=== PATIENT | female | born 1985 | race Caucasian/White ===

== ENCOUNTER 2025-01-09 20:11 | Emergency (ER) | payer OTHER, SELFPAY ==
--- OUTSIDE RECORDS SUMMARY | 2024-12-21 09:00 | XMS_ITS | Encounter Summary ---
Author Organization [facility] Address [address] [place] [address] Care Team Providers Care Fire Apparatus Engineer Name Role Phone Verna Neves MD Primary Care Provider [phone] Reason for Referral * Consult/Transfer Care (Routine) - New Request Specialty Diagnoses / Procedures Referred By Contac t Referred To Contact Diagnoses Depression with anxiety (HR[place]) [place] [address] [place] [address] Phone: tel: fax: Referral ID Status Reason Start Date Expiration Date V isits Requested Visits Authorized [id number] New Request 12/21/2024 03/22/2026 1 1 Scheduling Instructions Your clinician has recommended an appointment with Behavioral Health. You may call [phone] to schedule your appointment. This recommended service/s may not be covered by your health plan (health insurance). To find out your specific benefit coverage, please call the number on your insurance card. Please note that in order to maintain access for all patients, Behavioral Health does have a late cancellation policy. In order to avoid being restricted from scheduling future appointments in Behavioral Health you will need to cancel at least 48 hours in advance. We request you that you arrive 30 minutes before your first appointment to complete paperwork. Question Answer Appointment Urgency? Non-Urgent Reason for request? anxiety and depression Requested Services? Therapy/Counseling Pt aware and agrees to this order: Confirmed with patient Reason for Visit * Reason Comments DEPRESSION ANXIETY HEADACHE,MIGRAINE Encounter Details Date Type Department Care Team (Late st Contact Info) Description 12/21/2024 9:00 AM CDT Office Visit [facility] [address] [place] [address] [place] [address] [place] [address] Depression with anxiety (HRC) (Primary Dx); Chronic migraine with aura without status migrainosus, not intractable Social History Tobacco Use Types Packs/Day Years Used Date Smoking Tobacco: Never Passive Smoke Exposure: Never Smokeless Tobacco: Never Alcohol Use Standard Drinks/Week Comments Not Currently 0 (1 standard drink = 0.6 oz pur e alcohol) Rare AUDIT-C Answer Date Recorded Q1: How often do you have a drink containing alc ohol? Monthly or less 12/31/2019 Q2: How many drinks containi ng alcohol do you have on a typical day when you are drinking? 1 or 2 12/31/2019 Q3: How often do you have si x or more drinks on one occasion? 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 Not on file documented as of this encounter Last Filed Vital Signs Vital Sign Reading Time Taken Comments Blood Pressure 130/86 12/21/2024 8:51 AM CDT Pulse 84 12/21/2024 8:51 AM CDT Temperature - - Respiratory Rate - - Oxygen Saturation - - Inhaled Oxygen Concentration - - Weight 114.8 kg (253 lb) 12/21/2024 8:51 AM CDT Height - - Body Mass Index 42.1 07/19/2024 11:58 AM BILLET RECORDER documented in this encounter Patient Instructions * Patient Instructions* Kale Purvis MD - 12/21/2024 9:00 AM CDT 24 Hour [facility] Line: [phone] [employer] - resource for finding a therapist [facility] ([facility]): [phone] [facility]ul[facility] Norman ([place]): [phone] 1) [facility] [place]: [phone] 2) [facility] [place]: [phone] [place]: [phone] 3) [facility] [place]: [phone] 4) [facility]: [phone] 5) [facility]: [phone] 6)[facility] [place]: [phone] (also [facility]) 7) [facility]: [phone] 8) [facility] (counseling only) [place]: [phone] 9) [facility] [place]: [phone] 10) [facility] [place]: [phone] (counseling only) 11) [facility] [place]: [phone] 12) [facility] [place]: [phone] 13) [facility] [place]: [phone] 14) [facility] [place]: [phone] 15) [facility].: [phone] documented in this encounter Progress Notes * Kale Purvis MD - 12/21/2024 9:00 AM CDT Historical: Chief Complaint Patient presents with DEPRESSION ANXIETY HEADACHE,MIGRAINE Anxiety Follow-Up Do you take any prescription medication for this condition? YES How many doses of medication have you missed in the past week? 0 Do you have medication side effect concerns? No Are you seeing a counselor or therapist? No- referral pended How many times a week are you exercising regularly? infrequent exercise 12/21/2024 9:00 AM 02/04/2024 4:00 PM 07/04/2023 3:10 PM 11/12/2022 2:55 PM 10/09/2022 1:55 PM 08/06/2022 2:05 PM 10/08/2021 7:25 AM ROBERT-7 Feeling nervous 2 - More than half the days 0 - Not at all 3 - Nearly every day 1 - Several days 2 - More than half the days 1 - Several days 3 - Nearly every day Can't stop worrying 2 - More than half the days 0 - Not at all 2 - More than half the days 0 - Not at all 1 - Several days 2 - More than half the days 3 - Nearly every day Worrying too much 3 - Nearly every day 0 - Not at all 1 - Several days 1 - Several days 1 - Severaldays 2 - More than half the days 3 - Nearly every day Trouble relaxing 2 - More than half the days 0 - Not at all 2 - More than half the days 1 - Severaldays 1 - Several days 3 - Nearly every day 3 - Nearly every day Restlessness 0 - Not at all 0 - Not at all 1 - Several days 0 - Not at all 1 - Several days 0 - Notat all 2 - More than half the days Easily annoyed 3 - Nearly every day 1 - Several days 3 - Nearly every day 0 - Not at all 3 - Nearlyevery day 3 - Nearly every day 3 - Nearly every day Feeling afraid 3 - Nearly every day 0 - Not at all 1 - Several days 0 - Not at all 1 - Several days1 - Several days 3 - Nearly every day How difficult? Extremely difficult Not difficult Very difficult Somewhat difficult Very difficult Very difficult Extremely difficult Total score 15 1 13 3 10 12 20 Date Performed 12/21/2024 Time Performed 8:50 AM Depression Follow-Up 12/21/2024 9:00 AM 07/19/2024 12:20 PM 02/04/2024 4:00 PM 07/04/2023 3:10 PM 11/27/2022 1:00 PM 11/12/2022 2:55 PM 10/09/2022 1:55 PM PHQ-9 PHQ-9 Score Total 13 3 5 10 2 3 6 Q1: Loss of Int/Pleas 3 1 1 3 1 1 1 Q2: Depressed mood 2 1 1 1 0 0 1 Q3: Sleep problems 0 0 1 1 0 0 1 Q4: Tired/Low Energy 2 0 1 2 0 1 2 Q5: Appetite change 2 0 0 0 0 0 0 Q6: Feelings of failure 2 1 1 1 0 0 0 Q7: Concentration Prob 2 0 0 1 1 1 1 Q8: Slow or Restless 0 0 0 1 0 0 0 Q9: Thought Self Harm 0 0 0 0 0 0 0 Date PHQ9 was completed 02/04/2024 11/27/2022 Worsening anxiety and depression. Feeling tired emotionally and physically. No SI. On fluoxetine 30mg, thinks she may benefit from increasing dose. Would also like to meet with therapist. Headache/Migraine Follow-Up How often do you have headaches? 3 days per week On a scale of 1 to 10, how severe is your headache pain at its worst? 6 Since you were last seen for this, have your headaches improved? Worsened- more frequently Have the headaches caused any interference with work or daily activities? YES On the onset of a headache do you take any medication? YES Ibuprofen, Tylenol/acetaminophen, and Imitrex. On average, how many days do you take OTC or prescription medication to ease your headaches? 2-3 Do you take any daily medication to prevent headaches? No Do you have medication side effect concerns? No Diagnosed with migraines at age 15. Reports they have become more frequent the last 6 months. Developed aura with dark spots peripherally in vision at beginning of migraines about 4 months ago. Increase in stress, moved in with partner who has kids and started working for [email or web address]. Uses tylenol and ibuprofen. Having migraines 3 days/week now. Uses about 9 pills per month of sumatriptan. She takes sumatriptan 25 mg and usually has to take two. No associated numbness, tingling or speech difficulties. No new medications prior to increase in headaches. I have personally reviewed the patient's allergies, medications, and past medical history in detailand updated the patient record as necessary. Observed: BP 130/86 (BP Location: Left Arm, BP Cuff Size: Large) Pulse 84 Wt 253 lb (114.8 kg) BMI 42.10 kg/m?? Physical Exam: General Appearance: alert, well appearing, and in no apparent distress HEENT: lids normal, sclera clear, conjunctiva normal, EOMs intact, pupils equal round and reactive to light, and no nystagmus and oropharynx clear Neck: supple Heart: regular rate and rhythm and no murmurs, gallops or rubs Lungs: clear to auscultation and no wheezes, rales or rhonchi Neurologic: normal speech, no facial droop, alert and oriented x 3, and cranial nerves 2 -12 intact Psychiatric: affect/mood normal, cooperative, normal judgement/insight, and memory intact Assessment/Plan: Depression with anxiety (HRC) (primary encounter diagnosis) Comment: GAD7 15 and PHQ9 score of 13. Increase in stress, moved in with partner who has kids and started working for [email or web address]. Check TSH. On fluoxetine 30 mg, thinks she may benefit from increasing dose.No significant side effects. Would also like to meet with therapist. Referral ordered and provided other options in AVS Plan: Behavioral Health - Adult/Peds, TSH with reflex to fT4 (not for treatment monitoring), FLUoxetine (PROZAC) 40 MG capsule Chronic migraine with aura without status migrainosus, not intractable Comment: Will check routine labs to assess for possible etiologies. Most likely increasing in frequency is secondary to increased stress and patient agrees. Will hold off on brain imaging today due to identifiable reason for worsening migraines and patient in agreement. Neuro exam without concerning findings. No red flag symptoms. Increase sumatriptan to 50 mg and given frequency of migraines plan to start preventive medication. Discussed options with shared decision making. Trial propranolol due to anxiety. Start propranolol 20 mg twice daily. Pulse 84 today. Potential side effects reviewed.Follow up in 3 months to reassess or sooner if side effects. Plan: Complete Blood Count -W/Diff, Comprehensive Metabolic Panel, propranolol (INDERAL) 20 MG tablet, SUMAtriptan (IMITREX) 50 MG tablet With aura discussed risks of being on OCP with estrogen as this increases risk for VTE. Patient voiced understanding but prefers to stay on it for now. Takes for periods. She will consider Mirena IUDfor the future. Please see orders and patient instructions Kale Purvis MD documented in this encounter Plan of Treatment Scheduled Referrals Name Type Priority Associated Diagnoses Orde r Schedule Behavioral Health - Adult/Peds Referral Routine Depression with anxiety (HRC) Ordered: 12/21/2024 documented as of this encounter Results * TSH with reflex to fT4 (not for treatment monitoring) (12/21/2024 9:35 AM CDT) TSH, Reflex 1.89 0.30 - 4.50 uIU/mL 12/21/2024 3:28 PM CDT [facility] Blood Venipuncture / Unknown 12/21/2024 9:35 AM CDT 12/21/2024 9:35 AM CDT us Kale Purvis MD LAB_1 Final Result [facility] [address] * Comprehensive Metabolic Panel (12/21/2024 9:35 AM CDT) Sodium 138 136 - 145 mmol/L 12/21/2024 3:12 PM CDT [facility] Potassium 4.3 3.5 - 5.1 mmol/L 12/21/2024 3:12 PM T [facility] Chloride 106 98 - 109 mmol/L 12/21/2024 3:12 PM T [facility] CO2 24 20 - 29 mmol/L 12/21/2024 3:12 PM T [facility] Anion Gap 8 6 - 16 mmol/L 12/21/2024 3:12 PM T [facility] Calcium 8.8 8.4 - 10.4 mg/dL 12/21/2024 3:12 PM T [facility] BUN 14 7 - 26 mg/dL 12/21/2024 3:12 PM T [facility] Creatinine 0.82 0.55 - 1.02 mg/dL 12/21/2024 3:12 PM [facility] Alkaline Phosphatase 95 40 - 150 U/L 12/21/2024 3:12 PM T [facility] AST (SGOT) 20 10 - 40 U/L 12/21/2024 3:12 PM CDT [facility] ALT (SGPT) 10 0 - 55 U/L 12/21/2024 3:12 PM T [facility] Bilirubin, Total 0.3 0.2 - 1.2 mg/dL 12/21/2024 3:12 PM T [facility] Protein, Total 6.9 6.4 - 8.3 g/dL 12/21/2024 3:12 PM T [facility] Albumin 3.7 3.5 - 5.0 g/dL 12/21/2024 3:12 PM T [facility] Glucose 70 70 - 100 mg/dL 12/21/2024 3:12 PM T [facility] Comment:The given reference range is for the fasting state. Non-fasting reference range for glucose is 70 - 180 mg/dL. GFR, Estimated >60 >60 mL/min/1. 73m2 12/21/2024 3:12 PM T [facility] Hours Fasting 0.1 8 - 12 Hours 12/21/2024 3:12 PM [facility] Blood Venipuncture / Unknown 12/21/2024 9:35 AM CDT 12/21/2024 9:35 AM CDT us Kale Purvis MD LAB_1 Final Result Performing Organization Address City/State/[facility] Co de Phone Number [facility] [address] documented in this encounter Visit Diagnoses Diagnosis Depression with anxiety (HRC)- Primary Dysthymic disorder Chronic migraine with aura without status migrainosus, not intractable documented in this encounter Care Teams Fire Apparatus Engineer Relationship Specialty Start Date End Date Verna Neves MD [address] [place] [address] PCP - General Family Practice 12/29/19 documented as of this encounter
--- OUTSIDE RECORDS SUMMARY | 2024-12-21 09:40 | XMS_ITS | Encounter Summary ---
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 Gender Identity Not on file Sexual Orientation Not on file 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 Not on file documented as of this encounter Plan of Treatment Not on file documented as of this encounter Procedures Procedure Name Priority Date/Time Associated Diagnosis Comments RBC AND PLATELET MORPHOLOGY Routine 12/21/2024 9:35 AM CDT Chronic migraine with aura without status migrainosus, not intractable CBC AND DIFFERENTIAL PANEL Routine 12/21/2024 9:35 AM CDT Chronic migraine with aura without status migrainosus, not intractable COMPLETE BLOOD COUNT-W/DIFF Routine 12/21/2024 9:35 AM CDT Chronic migraine with aura without status migrainosus, not intractable COMPREHENSIVE METABOLIC PANEL Routine 12/21/2024 9:35 AM CDT Chronic migraine with aura without status migrainosus, not intractable TSH, SENSITIVE (WITH REFLEX) Routine 12/21/2024 9:35 AM CDT Depression with anxiety (HRC) documented in this encounter Results * Morphology-RBC and Platelet (12/21/2024 9:35 AM CDT) RBC Morphology Reviewed 12/21/2024 11:16 AM CDT [facility] Platelet Estimate Adequate Adequate 12/21/2024 11:16 AM CDT [facility] Blood Venipuncture / Unknown 12/21/2024 9:35 AM CDT 12/21/2024 9:35 AM CDT us Kale Purvis MD LAB_1 Final Result [facility] [address] [place] [address], [facility] * Complete Blood Count-W/Diff (12/21/2024 9:35 AM CDT) WBC 7.1 3.5 - 10.5 x10(9)/L 12/21/2024 11:16 AM CDT [facility] RBC 4.59 3.90 - 5.03 x10(12)/L 12/21/2024 11:16 AM CDT [facility] Hemoglobin 13.6 12.0 - 15.5 g/dL 12/21/2024 11:16 AM CDT [facility] HCT 41.4 34.9 - 44.5 % 12/21/2024 11:16 AM CDT [facility] MCV 90.2 80.0 - 100.0 fL 12/21/2024 11:16 AM CDT [facility] MCH 29.6 27.6 - 33.3 pg 12/21/2024 11:16 AM CDT [facility] MCHC 32.9 31.5 - 35.2 g/dL 12/21/2024 11:16 AM CDT [facility] RDW 12.3 11.9 - 15.5 % 12/21/2024 11:16 AM CDT [facility] Platelets 254 150 - 450 x10(9)/L 12/21/2024 11:16 AM CDT [facility] Neutrophil Absolute 4.9 1.7 - 7.0 10(9)/L 12/21/2024 11:16 AM CDT [facility] Lymphocyte Absolute 1.7 1.0 - 4.8 10(9)/L 12/21/2024 11:16 AM CDT [facility] Monocyte Absolute 0.4 0.2 - 0.9 10(9)/L 12/21/2024 11:16 AM CDT [facility] Eosinophil Absolute 0.0 0.0 - 0.5 10(9)/L 12/21/2024 11:16 AM CDT [facility] Basophil Absolute 0.0 0.0 - 0.3 10(9)/L 12/21/2024 11:16 AM CDT [facility] Immature Granulocyte % 0.3 0.0 - 0.5 % 12/21/2024 11:16 AM [facility] Blood Venipuncture / Unknown 12/21/2024 9:35 AM CDT 12/21/2024 9:35 AM CDT us Kale Purvis MD LAB_1 Final Result [facility] [address] [place] [address], [facility] * TSH with reflex to fT4 (not for treatment monitoring) (12/21/2024 9:35 AM CDT) TSH, Reflex 1.89 0.30 - 4.50 uIU/mL 12/21/2024 3:28 PM T [facility] Blood Venipuncture / Unknown 12/21/2024 9:35 AM CDT 12/21/2024 9:35 AM CDT us Kale Purvis MD LAB_1 Final Result [facility] [address] * Comprehensive Metabolic Panel (12/21/2024 9:35 AM CDT) Sodium 138 136 - 145 mmol/L 12/21/2024 3:12 PM T [facility] Potassium 4.3 3.5 - 5.1 mmol/L 12/21/2024 3:12 PM [facility] Chloride 106 98 - 109 mmol/L 12/21/2024 3:12 PM T [facility] CO2 24 20 - 29 mmol/L 12/21/2024 3:12 PM T [facility] Anion Gap 8 6 - 16 mmol/L 12/21/2024 3:12 PM T [facility] Calcium 8.8 8.4 - 10.4 mg/dL 12/21/2024 3:12 PM T [facility] BUN 14 7 - 26 mg/dL 12/21/2024 3:12 PM T [facility] Creatinine 0.82 0.55 - 1.02 mg/dL 12/21/2024 3:12 PM [facility] Alkaline Phosphatase 95 40 - 150 U/L 12/21/2024 3:12 PM T [facility] AST (SGOT) 20 10 - 40 U/L 12/21/2024 3:12 PM T [facility] ALT (SGPT) 10 0 - 55 U/L 12/21/2024 3:12 PM [facility] Bilirubin, Total 0.3 0.2 - 1.2 mg/dL 12/21/2024 3:12 PM [facility] Protein, Total 6.9 6.4 - 8.3 g/dL 12/21/2024 3:12 PM CDT [facility] Albumin 3.7 3.5 - 5.0 g/dL 12/21/2024 3:12 PM CDT [facility] Glucose 70 70 - 100 mg/dL 12/21/2024 3:12 PM CDT [facility] Comment:The given reference range is for the fasting state. Non-fasting reference range for glucose is 70 - 180 mg/dL. GFR, Estimated >60 >60 mL/min/1. 73m2 12/21/2024 3:12 PM CDT [facility] Hours Fasting 0.1 8 - 12 Hours 12/21/2024 3:12 PM T [facility] Blood Venipuncture / Unknown 12/21/2024 9:35 AM CDT 12/21/2024 9:35 AM CDT us Kale Purvis MD LAB_1 Final Result Performing Organization Address City/State/[facility] Co de Phone Number [facility] [address] documented in this encounter Visit Diagnoses Diagnosis Chronic migraine with aura without status migrainosus, not intractable Depression with anxiety (HRC) Dysthymic disorder documented in this encounter Care Teams Lathe Tender Relationship Specialty Start Date End Date Verna Neves MD [address] [place] [address] PCP - General Family Practice 12/29/19 documented as of this encounter
--- OUTSIDE RECORDS SUMMARY | 2024-12-31 09:00 | XMS_ITS | Encounter Summary ---
[facility] Address [address], [place] [address] Care Team Providers Care Online Marketing Director Name Role Phone Verna Neves MD Primary Care Provider [phone] Reason for Visit * Reason Comments DIZZINESS Outside mowing lawn, came back in house and had some bug bites that were bleeding pt claims. 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 Not on file documented as of this encounter Last Filed Vital Signs Vital Sign Reading Time Taken Comments Blood Pressure 131/82 12/31/2024 8:55 AM CDT Pulse 65 12/31/2024 8:55 AM CDT Temperature - - Respiratory Rate 14 12/31/2024 8:55 AM CDT Oxygen Saturation - - Inhaled Oxygen Concentration - - Weight 115.8 kg (255 lb 6.4 oz) 12/31/2024 8:55 AM CDT Height 168.9 cm (5' 6.5) 12/31/2024 8:55 AM CDT Body Mass Index 40.61 12/31/2024 8:55 AM CDT documented in this encounter Progress Notes * Ana Maria Sanchez, LINCOLN, SIEVE MAKER - 12/31/2024 9:00 AM CDT Subjective: Patient ID: Blanka Swann is a 39 y.o. year old female Chief Complaint: Bug bites HPI This is a 39-year-old female who is here today for evaluation of bug bites on the arms. Four days ago she cut the grass while wearing a T-shirt. After this she noticed multiple large bug bites on thearms, some of which had bled onto her shirt. She gets welts from mosquito bites, but these appear to be much bigger. This is associated with arm pain and pruritus. Yesterday she felt nauseous and dizzy. She turned the air conditioning on in her home and this helped. Overnight she woke up with diaphoresis and vomited several times. She is feeling better today. She has been applying topical Resinol, hydrocortisone, taking Tylenol and Benadryl. No past medical history on file. Outpatient Medications Prior to Visit Medication Sig Dispense Refill Ascorbic Acid (VITAMIN C) 250 MG tablet Take 1 Tablet (250 mg) by mouth daily. FERROUS SULFATE OR 356 mg. FLUoxetine (PROZAC) 40 MG capsule Take 1 Capsule (40 mg) by mouth daily. 90 Capsule 0 levonorgestrel-ethinyl estrad (VIENVA) 0.1-20 MG-MCG tablet Take 1 Tablet by mouth daily. Skip placebo week. 84 Tablet 4 montelukast (SINGULAIR) 10 MG tablet TAKE 1 TABLET(10 MG) BY MOUTH EVERY EVENING 90 Tablet 0 Phentermine HCl (ADIPEX-P) 37.5 MG tablet Take 1 Tablet (37.5 mg) by mouth daily before breakfast. 90 Tablet 3 propranolol (INDERAL) 20 MG tablet Take 1 Tablet (20 mg) by mouth two times a day. 180 Tablet 0 SUMAtriptan (IMITREX) 50 MG tablet Take 1 Tablet (50 mg) by mouth as needed for Migraine. May repeat one tablet after 2 hours if needed. Maximum 4 tabs/24 hours and 9 days/month 9 Tablet 3 triamcinolone acetonide (KENALOG) 0.1 % cream Apply topically two times daily as needed for Other. Use up to 2 weeks at a time (Patient not taking: Reported on 12/31/2024) 30 g 0 No facility-administered medications prior to visit. Allergies Latex and Penicillins Social History Social History Narrative Lesbian, never sexually active. On OCPs due to control menses. Review of Systems Pertinent items are noted in HPI. Objective: Physical Exam BP 131/82 (BP Location: Left Arm, BP Cuff Size: Regular) Pulse 65 Resp 14 Ht 5' 6.5 (1.689 m) Wt 255 lb 6.4 oz (115.8 kg) BMI 40.61 kg/m?? General: Alert and oriented female in no acute distress HEENT: Normocephalic, atruamatic. Normal external eye exam. Lungs: Clear to auscultation bilaterally Heart: RRR, nomal S1 S2, no murmur Skin: A focused skin exam is performed. There are multiple raised warm erythematous patches with central punctum on the upper extremities bilaterally. These lesions are approximately 2-3 cm diameter.No abscesses or fluctuance. No drainage. Assessment & Plan: Blanka was seen today for dizziness, nausea, vomiting and welts. Diagnoses and all orders for this visit: Bug bite, initial encounter This patient presents with multiple bites from an unknown bug to the upper extremities. Given degree of swelling and discomfort, we will prescribe a five- day course of prednisone. Discussed possible side effects. Take this medicine with food, not on an empty stomach. Triamcinolone cream t.i.d. PRN. She should expect gradual improvement over the next few days. - predniSONE (DELTASONE) 20 MG tablet; Take 2 Tablets (40 mg) by mouth daily for 5 days. - triamcinolone acetonide (KENALOG) 0.1 % cream; Apply topically to bug bites up to three times a day as needed for 7 days. documented in this encounter Plan of Treatment Not on file documented as of this encounter Visit Diagnoses Diagnosis Bug bite, initial encounter- Primary documented in this encounter Care Teams Online Marketing Director Relationship Specialty Start Date End Date Verna Neves MD [address] [place] [address] PCP - General Family Practice 12/29/19 documented as of this encounter
[2025-01-09] VITALS (12 sets, daily range): BP systolic 127–147; BP diastolic 69–117; PULSE 61–82; RESP 16; TEMP 36.1; O2SAT 97–100; BMI 42.0
--- NOTE | 2025-01-09 21:41 | CRLHL7_ITS ---
For Patients: As a result of the Century Cures Act, medical imaging exams and procedure reports are released immediately into your electronic medical record. You may view this report before your referring provider. If you have questions, please contact your health care provider. INDICATION: Head trauma. COMPARISON: None. TECHNIQUE: CT of the head without IV contrast. Coronal and sagittal reconstructions. FINDINGS: Brain: No intracranial hemorrhage, abnormal extra-axial fluid collection, or evidence of acute infarct. No mass effect or midline shift. Normal caliber ventricular system. Skull base and calvarium: The visualized paranasal sinuses and mastoid air cells are clear. The visualized orbits are grossly unremarkable. No acute fracture identified. Soft tissues: Unremarkable. IMPRESSION: No acute intracranial findings. Please note that all CT scans at this facility use dose modulation, iterative reconstruction, and/or weight-based dosing when appropriate to reduce radiation dose to as low as reasonably achievable. Dictated by Kaitlyn Burnett MD @ 01/09/2025 11:02:05 PM (Electronically Signed)
--- NOTE | 2025-01-09 21:41 | ED_ITS ---
HPI - General Adult General Chief complaint: Unspecified Complaint, Adult Stated complaint: Concussion concerns, vomiting Time Seen by Provider: 01/09/25 21:40 Source: patient Mode of arrival: ambulatory Limitations: no limitations History of Present Illness HPI narrative: 39-year-old female presenting today headache after head trauma. Patient states that she hit her head on the side panel of her vehicle when she was lifting a mini Fridge out of the car. She hit her head so hard that she became instantly disoriented and dropped Fridge on the ground. She developed blurry vision that did go away. Developed ringing in her ears. She developed an instant headache that she rated an 8/10, states that her headache is now a 6 to a 7/10. 2 hours after hitting her head she started vomiting, vomited once. The event occurred approximately 6 hours ago. She states that her headache is getting worse. She still feels very nauseated. She denies confusion but states that she feels foggy. Related Data Allergies Allergy/AdvReac Type Severity Reaction Status Date / Time Penicillins Allergy Intermediate Verified 01/09/25 20:25 Review of Systems Status of ROS: Reports: 10 or more systems reviewed and unremarkable except as noted in History and below Exam Narrative: Exam Narrative: Well-nourished well-developed patient in no acute distress. Alert and oriented. Answers questions appropriately. Mood and affect are appropriate. Thoughts are goal oriented and rational. No tangential or magical thinking noted. Patient speaks in full sentences without needing to catch her breath. Patient appears tired, does not appear uncomfortable. HEENT: Normocephalic atraumatic. Pupils are equally round reactive to light. Extraocular muscles are intact. Conjunctivae are moist without any icterus noted. Moist mucous membranes. Neck is soft without pain. No pain over the cervical spine. Full range of motion at the neck without discomfort. No evidence of trauma to the head. Cardiovascular: Heart is regular rate and rhythm. Lungs: Clear to auscultation bilaterally. Strength is 5/5 of the upper and lower extremities. Cranial nerves 3-12 are grossly normal. There is no nystagmus either horizontally or vertically. Const: Vital Signs, click to edit/add: Vital Signs - 24 hr 01/09/25 20:22 01/09/25 21:43 01/09/25 21:44 Temperature 96.9 F L Pulse Rate 71 82 Pulse Rate [Left P ulse Oximeter] 69 Respiratory Rate 16 Blood Pressure 147/117 H Blood Pressure [Ri ght Upper Arm] 139/85 Pulse Oximetry 100 99 100 Oxygen Delivery Me thod Room Air 01/09/25 21:45 01/09/25 21:47 Temperature Pulse Rate 70 66 Pulse Rate [Left P ulse Oximeter] Respiratory Rate Blood Pressure 132/75 Blood Pressure [Ri ght Upper Arm] Pulse Oximetry 100 98 Oxygen Delivery Me thod Course Course ED Course: Given the patient's headache, vomiting and continued symptoms we did go ahead and proceed with a head CT. This was unremarkable. Vital Signs Vital signs: Initial Vital Signs Temperature 96.9 F L 01/09/25 20:22 Temperature Source Temporal Artery Scan 01/09/25 20:22 Pulse Rate 69 01/09/25 20:22 Pulse Rhythm Regular 01/09/25 20:22 Respiratory Rate 16 01/09/25 20:22 Blood Pressure 139/85 01/09/25 20:22 Blood Pressure Mean 103 01/09/25 20:22 Blood Pressure Position Sitting 01/09/25 20:22 Pulse Oximetry 100 01/09/25 20:22 Oxygen Delivery Method Room Air 01/09/25 20:22 Vital Signs Temperature 96.9 F L 01/09/25 20:22 Pulse Rate 69 01/09/25 20:22 Respiratory Rate 16 01/09/25 20:22 Blood Pressure 139/85 01/09/25 20:22 Pulse Oximetry 100 01/09/25 20:22 Oxygen Delivery Method Room Air 01/09/25 20:22 Temperature 96.9 F L 01/09/25 20:22 Pulse Rate 66 01/09/25 21:47 Respiratory Rate 16 01/09/25 20:22 Blood Pressure 132/75 01/09/25 21:47 Pulse Oximetry 98 01/09/25 21:47 Oxygen Delivery Method Room Air 01/09/25 20:22 Medical Decision Making MDM Narrative Medical decision making narrative: 39-year-old female with a closed head injury and subsequent concussion. Discussed concussion cares, follow-up with the concussion Clinic given her history of repeated concussions. Imaging Data CT scan - head: Attestation: I have reviewed the pertinent imaging results. Radiologist's impression: TECHNIQUE: CT of the head without IV contrast. Coronal and sagittal reconstructions. FINDINGS: Brain: No intracranial hemorrhage, abnormal extra-axial fluid collection, or evidence of acute infarct. No mass effect or midline shift. Normal caliber ventricular system. Skull base and calvarium: The visualized paranasal sinuses and mastoid air cells are clear. The visualized orbits are grossly unremarkable. No acute fracture identified. Soft tissues: Unremarkable. IMPRESSION: No acute intracranial findings. Discharge Plan Discharge Clinical Impression: Concussion, Closed head injury Patient Disposition: Home, Self-Care Condition: Stable Additional Instructions: Rest for 24 hours then return to activity: Each step should take 24 hours before advancing to the next step. 1. School or work 2. Light physical activity 3. Rigorous activity, non contact sports. If symptoms return, rest for 24 hours and resume at the last step that did not produce symptoms. Given her history of concussions, I do recommend you follow-up with your primary care provider to discuss potentially following up at a concussion Clinic. In the meantime okay to take Tylenol or ibuprofen as needed/as directed for headache. Stand Alone Forms: [employer] Info Instructions
--- OUTSIDE RECORDS SUMMARY | 2025-01-09 22:01 | XMS_ITS | Encounter Summary ---
Author [facility] Address [address], [place] [address] Care Team Providers Care Burner Shaft Name Role Phone Verna Neves MD Primary Care Provider [phone] Reason for Visit * Reason Comments Refill montelukast (SINGULA IR) 10 MG tablet [Pharmacy Med Name: MONTELUKAST 10MG TABLETS] Encounter Details Date Type Department Care Team (Late st Contact Info) Description 12/13/2024 Refill [facility] [address] [place], [place] [id number] Richard Live MD [address] [place] [phone] Refill (montelukast (SINGULAIR) 10 MG tablet [Pharmacy Med Name: MONTELUKAST 10MG TABLETS]) Social History Tobacco Use Types Packs/Day Years [...] on file 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 * Vale Tate Xrwcomm - 12/13/2024 8:07 AM CDT montelukast (SINGULAIR) 10 MG tablet [Pharmacy Med Name: MONTELUKAST 10MG TABLETS] Medication started: 12/31/2019 Last ordered by RICHARD LIVE: 02/04/2024 (313 days ago) QTY: 90, Refills: 3, Sig: take 1 tablet (10 mg) by mouth every evening. (changed but equivalent) -> Refill x 3 months (until due for an office visit) Last qualifying visit: 02/04/2024 (with RICHARD LIVE) (A more recent visit (in Family Practice with ARELY DELGADO) was found) Next scheduled visit: 12/21/2024 (with SHARDA PEOPLES) [facility] Embedded Refills, Reference: [id number], 12/13/2024 8:07:44 AM CDT, Pool: Refill Centralized Services - Primary Care ([id number]) documented in this encounter Plan of Treatment Not on file documented as of this encounter Visit Diagnoses Diagnosis Seasonal allergies Allergic rhinitis, cause unspecified documented in this encounter Care Teams Burner Shaft Relationship Specialty Start Date End Date Verna Neves MD [address] [place] [address] PCP - General Family Practice 12/29/19 documented as of this encounter
--- OUTSIDE RECORDS SUMMARY | 2025-01-09 22:01 | XMS_ITS | Clinical Summary ---
Author Organization [facility] Address [address] [place] [address] Care Team Providers Care Ratchet Setter Name Role Phone Chantal Head PA-C Primary Care Provider [phone] Allergies Active Allergy Reactions Criticality Noted Date Comments Latex Hives High 06/29/2018 Penicillins Anaphylaxis High 06/29/2018 Medications benzonatate (TESSALON) 100 MG capsule Take 1 capsule (100 mg) by mouth 3 times daily as needed for cough 15 capsule 01/26/2024 Active Active Problems No known active problems Social History Tobacco Use Types Packs/Day Years Used Date Smoking Tobacco: Never Assessed Adolescent Education Answer Date Record ed Getting School Help Needed Not on file 01/25 Comments No Sex and Gender Information Value Date Recorded Sex Assigned at Not on file Legal Sex Female 11:23 AM CDT Gender Identity Not on file Sexual Orientation Not on file Last Filed Vital Signs Vital Sign Reading Time Taken Comments Blood Pressure 138/76 01/26/2024 2:04 PM CDT Pulse 94 01/26/2024 2:04 PM CDT Temperature 37.1 C (98.7 F) 01/26/2024 11:45 AM CDT Respiratory Rate 20 01/26/2024 2:04 PM CDT Oxygen Saturation 96% 01/26/2024 2:04 PM CDT Inhaled Oxygen Concentration - - Weight 110.2 kg (243 lb) 01/26/2024 11:45 AM CDT Height 165.1 cm (5' 5) 01/26/2024 11:45 AM CDT Body Mass Index 40.44 01/26/2024 11:45 AM CDT Plan of Treatment Health Maintenance Due Date Last Done Comments ADVANCE CARE PLANNING 1987 ANNUAL REVIEW OF HM ORDERS 1987 DIABETES SCREENING 1987 YEARLY PREVENTIVE VISIT 10/23/1990 HEPATITIS C SCREENING 10/23/2005 HEPATITIS B VACCINE (1 of 3 - 19+ 3-dose series) 10/23/2006 COVID-19 VACCINE (3 - 2023-2 5 season) 2024 09/10/2020, 08/14/2020 PHQ-2 (once per calendar year) 2024 PAP 02/06/2025 02/06/2022 INFLUENZA VACCINE (Season Ended) 2025 DTAP/TDAP/TD VACCINE (3 - Td or Tdap) 10/09/2031 10/08/2021, 10/29/2011 ZOSTER VACCINE (1 of 2) 10/23/2037 HIV SCREENING Completed 04/04/2021 HPV VACCINE Aged Out No longer eligi ble based on patient's age to complete this topic MENINGITIS VACCINE Aged Out No longer eligible based on patient's age to complete this topic PNEUMOCOCCAL VACCINE: PEDIATRICS (0 to 5 YEARS) AND AT-RISK PATIENTS (6 to 49 YEARS) Aged Out No longer eligible b ased on patient's age to complete this topic Insurance [address] [place] [address] [employer] [address] [facility] [address] [place] [id number] [facility] [employer] Care Teams Ratchet Setter Relationship Specialty Start Date End Date Chantal Head, PAKathiaC [address] [place] [address] PCP - General 01/26/24
--- OUTSIDE RECORDS SUMMARY | 2025-01-09 22:01 | XMS_ITS | Clinical Summary ---
Author Organization [facility] Address [address], [place] [address] Care Team Providers Care Crayon Painter Name Role Phone Verna Neves MD Primary Care Provider [phone] Source Comments You are receiving this document as you are listed as the primary care provider,follow-up provider, or the patient has been referred to you for consultation.This is in compliance with the Medicare and[facility] EHR Incentive Program,which states Providers who transition their patient to another setting of careor provider of care or refers their patient to another provider of care shouldprovide summary care record for each transition of care or referral. [facility] E[facility] Allergies Active Allergy Reactions Criticality Noted Date Comments Latex Hives High 06/29/2018 Penicillins Anaphylaxis High 06/29/2018 Medications FERROUS SULFATE OR 356 mg. Active Ascorbic Acid (VITAMIN C) 250 MG tablet Take 1 Tablet (250 mg) by mouth daily. Active levonorgestrel-e thinyl estrad (VIENVA) 0.1-20 MG-MCG tabletIndication s:Encounter for initial prescription of contraceptive pills Take 1 Tablet by mouth daily. Skip placebo week. 84 Tablet 4 07/19/19 25 Active Phentermine HCl (ADIPEX-P) 37.5 MG tabletIndication s:Class 3 severe obesity due to excess calories without serious comorbidity with body mass index (BMI) of 40.0 to 44.9 in adult Take 1 Tablet (37.5 mg) by mouth daily before breakfast. 90 Tablet 3 07/19/19 25 2025 Active triamcinolone acetonide (KENALOG) 0.1 % cream Apply topically two times daily as needed for Other. Use up to 2 weeks at a time 30 g 07/19/19 25 Active Additional Information Patient not taking.Reported on 12/31/2024 montelukast (SINGULAIR) 10 MG tabletIndication s:Seasonal allergies TAKE 1 TABLET(10 MG) BY MOUTH EVERY EVENING 90 Tablet 12/15/19 25 Active propranolol (INDERAL) 20 MG tabletIndication s:Chronic migraine with aura without status migrainosus, not intractable Take 1 Tablet (20 mg) by mouth two times a day. 180 Tablet 12/22/19 25 Active FLUoxetine (PROZAC) 40 MG capsuleIndicatio ns:Depression with anxiety (HRC) Take 1 Capsule (40 mg) by mouth daily. 90 Capsule 12/22/19 25 Active SUMAtriptan (IMITREX) 50 MG tabletIndication s:Chronic migraine with aura without status migrainosus, not intractable Take 1 Tablet (50 mg) by mouth as needed for Migraine. May repeat one tablet after 2 hours if needed. Maximum 4 tabs/24 hours and 9 days/month 9 Tablet 3 12/22/19 25 Active triamcinolone acetonide (KENALOG) 0.1 % creamIndications :Bug bite, initial encounter Apply topically to bug bites up to three times a day as needed for 7 days. 30 g 01/01/20 25 Active montelukast (SINGULAIR) 10 MG tabletIndication s:Seasonal allergies Take 1 Tablet (10 mg) by mouth every evening. 90 Tablet 3 02/04/20 24 2024 Discontinued SUMAtriptan (IMITREX) 25 MG tablet Take 1 Tablet (25 mg) by mouth as needed for Migraine. 9 Tablet 4 07/19/19 25 2024 Discontinued FLUoxetine (PROZAC) 20 MG capsuleIndicatio ns:Depression with anxiety (HRC) Take 1 Capsule (20 mg) by mouth daily. Take with 10mg to equal 30mg 90 Capsule 2 07/19/19 25 2024 Discontinued FLUoxetine (PROZAC) 10 MG capsuleIndicatio ns:Depression with anxiety (HRC) Take 1 Capsule (10 mg) by mouth daily. Take with 20mg to equal 30mg 90 Capsule 2 07/19/19 25 2024 Discontinued predniSONE (DELTASONE) 20 MG tabletIndication s:Bug bite, initial encounter Take 2 Tablets (40 mg) by mouth daily for 5 days. 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) 10/30/2021 Mild traumatic brain injury 10/30/2021 Vision changes 10/30/2021 Seasonal allergies 12/31/2019 Depression with anxiety 06/29/2018 Encounters Date Type Department Care Team Description 12/31/2024 9:00 AM CDT Office Visit [address] [address] Ana Maria Sanchez, SPINNING LATHE OPERATOR HYDRAULIC, ACCOUNTING SUPPORT SPECIALIST Bug bite, initial encounter (Primary Dx) 12/21/2024 9:40 AM CDT Lab Visit Laboratory at [address] [address] Chronic migraine with aura without status migrainosus, not intractable; Depression with anxiety (HRC) 12/21/2024 9:00 AM CDT Office Visit [address] [address] Kale Purvis MD Depression with anxiety (HRC) (Primary Dx); Chronic migraine with aura without status migrainosus, not intractable 12/21/2024 Results Follow-Up [address] [address] Kale Purvis MD 12/13/2024 [place] [facility] [place] [address] [address] Astrid Proctor MD Refill (montelukast (SINGULAIR) 10 MG tablet [Pharmacy Med Name: MONTELUKAST 10MG TABLETS]) from Last 3 Months Immunizations Immunization Administration Dates Next Due Influenza ccIIV3 6 months+ (Flucelvax) Moderna COVID-19 12+ 07/19/2024 Moderna Monovalent 12+ 09/10/2020,08/14/2020 Td Adult, Not Absorbed 10/29/2011 Tdap 10/08/2021 Family History Medical History Relation Name Comments Depression Father Diabetes, Type I Father Hypertension Father Obstructive Sleep Apnea Father Coronary Artery Disease Mother Depression Mother Diabetes, Type I Mother Fibromyalgia Mother Depression Maternal Aunt Depression Maternal Grandmother Relation Name Status Comments Father Alive Mother Alive Maternal Aunt Maternal Grandmother Social History Tobacco Use Types Packs/Day Years Used Date Smoking Tobacco: Never Passive Smoke Exposure: Never Smokeless Tobacco: Never Tobacco Cessation:Counseling Given: Not Answered Alcohol Use Standard Drinks/Week Comments Not Currently [...] on file 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 Gender Identity Not on file Sexual Orientation Not on file 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 Not on file Last Filed Vital Signs Vital Sign Reading Time Taken Comments Blood Pressure 131/82 12/31/2024 8:55 AM CDT Pulse 65 12/31/2024 8:55 AM CDT Temperature 36.2 C (97.2 F) 02/04/2024 4:36 PM CDT Respiratory Rate 14 12/31/2024 8:55 AM CDT Oxygen Saturation 95% 02/04/2024 4:36 PM CDT Inhaled Oxygen Concentration - - Weight 115.8 kg (255 lb 6.4 oz) 12/31/2024 8:55 AM CDT Height 168.9 cm (5' 6.5) 12/31/2024 8:55 AM CDT Body Mass Index 40.61 12/31/2024 8:55 AM CDT Plan of Treatment Health Maintenance Due Date Last Done Comments Hep C Screening (Preventive Services) 1985 Adult Preventive Visit 02/07/2024 2, 04/04/2021, 04/04/2021 (Completed) Cervical Cancer Screening 02/06/20272021, 02/06/2022, 04/24/2017 (Completed) Diabetes Screening- (based o n age and BMI) 07/19/2027 07/19/2024 DTaP/Tdap/Td Vaccine (2 - Tdap) 10/09/2031 10/08/2021, 10/29/2011 Zoster/Shingles Vaccine (1 o f 2) 10/23/2037 HIV Screening (Preventive Services) Completed 04/04/2021 COVID-19 Vaccine Completed 07/19/2024, 09/10/2020, 08/14/2020 Influenza Vaccine Completed 07/19/2024 HPV Vaccine Aged Out No longer eligi ble based on patient's age to complete this topic HepA Vaccine Aged Out No longer eligi ble based on patient's age to complete this topic Hib Vaccine Aged Out No longer eligi ble based on patient's age to complete this topic IPV (Polio) Vaccine Aged Out No longe r eligible based on patient's age to complete this topic MCV4 Vaccine Aged Out No longer eligi ble based on patient's age to complete this topic Meningococcal B Vaccine Aged Out No l onger eligible based on patient's age to complete this topic Pneumococcal Vaccine Aged Out No long er eligible based on patient's age to complete this topic Procedures Procedure Name Priority Date/Time Associated Diagnosis Comments RBC AND PLATELET MORPHOLOGY Routine 12/21/2024 9:35 AM CDT Chronic migraine with aura without status migrainosus, not intractable COMPLETE BLOOD COUNT-W/DIFF Routine 12/21/2024 9:35 AM CDT Chronic migraine with aura without status migrainosus, not intractable TSH, SENSITIVE (WITH REFLEX) Routine 12/21/2024 9:35 AM CDT Depression with anxiety (HRC) COMPREHENSIVE METABOLIC PANEL Routine 12/21/2024 9:35 AM CDT Chronic migraine with aura without status migrainosus, not intractable CBC AND DIFFERENTIAL PANEL Routine 12/21/2024 9:35 AM CDT Chronic migraine with aura without status migrainosus, not intractable HGB A1C Routine 07/19/2024 1:08 PM LACQUER COATER Screening for diabetes mellitus CYTOLOGY (PAP) Routine 02/06/2022 9:18 AM CDT Screening for malignant neoplasm of cervix HIV 1/2 AG/AB 4TH GEN Routine 04/04/2021 4:24 PM CDT Screening for HIV (human immunodeficiency virus) from Last 3 Months or Most Recently Relevant to Health Maintenance Results * Morphology-RBC and Platelet (12/21/2024 9:35 AM CDT) RBC Morphology Reviewed 12/21/2024 11:16 AM CDT [facility] Platelet Estimate Adequate Adequate 12/21/2024 11:16 AM CDT [facility] Blood Venipuncture / Unknown 12/21/2024 9:35 AM CDT 12/21/2024 9:35 AM CDT us Kale Purvis MD LAB_1 Final Result [facility] [address] [place] [address], [facility] * Complete Blood Count-W/Diff (12/21/2024 9:35 AM CDT) WBC 7.1 3.5 - 10.5 x10(9)/L 12/21/2024 11:16 AM CDT [facility] RBC 4.59 3.90 - 5.03 x10(12)/L 12/21/2024 11:16 AM CDT [facility] Hemoglobin 13.6 12.0 - 15.5 g/dL 12/21/2024 11:16 AM CDT [facility] HCT 41.4 34.9 - 44.5 % 12/21/2024 11:16 AM CDT [facility] MCV 90.2 80.0 - 100.0 fL 12/21/2024 11:16 AM CDT [facility] MCH 29.6 27.6 - 33.3 pg 12/21/2024 11:16 AM CDT [facility] MCHC 32.9 31.5 - 35.2 g/dL 12/21/2024 11:16 AM CDT [facility] RDW 12.3 11.9 - 15.5 % 12/21/2024 11:16 AM CDT [facility] Platelets 254 150 - 450 x10(9)/L 12/21/2024 11:16 AM CDT [facility] Neutrophil Absolute 4.9 1.7 - 7.0 10(9)/L 12/21/2024 11:16 AM CDT [facility] Lymphocyte Absolute 1.7 1.0 - 4.8 10(9)/L 12/21/2024 11:16 AM CDT [facility] Monocyte Absolute 0.4 0.2 - 0.9 10(9)/L 12/21/2024 11:16 AM CDT [facility] Eosinophil Absolute 0.0 0.0 - 0.5 10(9)/L 12/21/2024 11:16 AM CDT [facility] Basophil Absolute 0.0 0.0 - 0.3 10(9)/L 12/21/2024 11:16 AM CDT [facility] Immature Granulocyte % 0.3 0.0 - 0.5 % 12/21/2024 11:16 AM T [facility] Blood Venipuncture / Unknown 12/21/2024 9:35 AM CDT 12/21/2024 9:35 AM CDT us Kale Purvis MD LAB_1 Final Result [facility] [address] [place] [address], [facility] * Comprehensive Metabolic Panel (12/21/2024 9:35 AM CDT) Sodium 138 136 - 145 mmol/L 12/21/2024 3:12 PM CDT [facility] Potassium 4.3 3.5 - 5.1 mmol/L 12/21/2024 3:12 PM CDT [facility] Chloride 106 98 - 109 mmol/L 12/21/2024 3:12 PM [facility] CO2 24 20 - 29 mmol/L 12/21/2024 3:12 PM [facility] Anion Gap 8 6 - 16 mmol/L 12/21/2024 3:12 PM [facility] Calcium 8.8 8.4 - 10.4 mg/dL 12/21/2024 3:12 PM [facility] BUN 14 7 - 26 mg/dL 12/21/2024 3:12 PM [facility] Creatinine 0.82 0.55 - 1.02 mg/dL 12/21/2024 3:12 PM [facility] Alkaline Phosphatase 95 40 - 150 U/L 12/21/2024 3:12 PM [facility] AST (SGOT) 20 10 - 40 U/L 12/21/2024 3:12 PM [facility] ALT (SGPT) 10 0 - 55 U/L 12/21/2024 3:12 PM [facility] Bilirubin, Total 0.3 0.2 - 1.2 mg/dL 12/21/2024 3:12 PM [facility] Protein, Total 6.9 6.4 - 8.3 g/dL 12/21/2024 3:12 PM [facility] Albumin 3.7 3.5 - 5.0 g/dL 12/21/2024 3:12 PM [facility] Glucose 70 70 - 100 mg/dL 12/21/2024 3:12 PM [facility] Comment:The given reference range is for the fasting state. Non-fasting reference range for glucose is 70 - 180 mg/dL. GFR, Estimated >60 >60 mL/min/1. 73m2 12/21/2024 3:12 PM [facility] Hours Fasting 0.1 8 - 12 Hours 12/21/2024 3:12 PM [facility] Blood Venipuncture / Unknown 12/21/2024 9:35 AM T 12/21/2024 9:35 AM [facility] us Kaitlan F Vossen MD LAB_1 Final Result Performing Organization Address [facility] de Phone Number [facility] [address] * TSH with reflex to fT4 (not for treatment monitoring) (12/21/2024 9:35 AM CDT) [facility] TSH, Reflex 1.89 0.30 - 4.50 uIU/mL 12/21/2024 3:28 PM CDT [facility] Blood Venipuncture / Unknown 12/21/2024 9:35 AM CDT 12/21/2024 9:35 AM CDT Kale Purvis MD LAB_1 Final Result Performing Organization Address [facility] Phone Number [facility] [address] * Hgb A1C (Expected: Now) - Collect in Lab (07/19/2024 1:08 PM LACQUER COATER) [facility] Hemoglobin A1C 5.2 <=5.6 % 07/19/2024 8:08 PM LACQUER COATER [facility] Estimated Average Glucose (Calc) 103 < 117 mg/dL 07/19/2024 8:08 PM [facility] Comment:Estimated average gl ucose (eAG) converts A1c into glucose units (mg/dL) and estimates average glucose over the past approximately 3 months. The eAG reference interval (<117 mg/dL) corresponds to an A1c of <5.7%. Blood Venipuncture / Unknown 07/19/2024 1:08 PM LACQUER COATER 07/19/2024 1:08 PM LACQUER COATER Chantal Head PA-C LAB_1 Final Resul t Performing Organization Address [facility] Co de Phone Number [facility] [address] * PAP Test (02/06/2022 9:18 AM CDT) Case Report Pap Case: [id number] Authorizing Provider: Verna Neves MD Collected: 02/06/2022 0918 Ordering Location: [facility] Received: 02/06/2022 1226 Practice First Screen: Gabriella Caraballo, CT (ASCP) Rescreen: Gabriela Coughlin SCT (ASCP) Specimen: Pap Test, Routine, Cervix/Endocervix 02/21/2022 1:31 PM [facility] Pap Specimen Adequacy Satisfactory for evaluation, endocervical/kuo sformation zone component absent. 02/21/2022 1:31 PM [facility] Pap Interpretation (NILM) Negative for intraepithelial lesion or malignancy. 02/21/2022 1:31 PM [facility] at 1331 CDT Pap Disclaimer The Pap test is a screening test designed to aid in the detection of cervical cancer and its precursor lesions. It is not a diagnostic procedure and should not be used as the sole means of detecting cervical cancer. Both false-positive and false-negative results may occur. 02/21/2022 1:31 PM [facility] Gross Description The specimen is received in SurePath fixative and properly labeled. 1 Pap-stained SurePath slide is prepared. 02/21/2022 1:31 PM [facility] Embedded Images 1:31 PM [facility] Other Specimen Type ENTIRE ENDOCERVIX / Unknown 02/06/2022 9:18 AM CDT 02/06/2022 12:26 PM CDT Comment:LMP: No LMP recorded . (Menstrual status: Continuous hormonal contraception). Verna Neves MD LAB PATHOLOGY Final Resul t [address] [address], [facility] [phone] * HIV 1/2 Ag/Ab 4th Generation (04/04/2021 4:24 PM CDT) HIV 1/2 Antigen/Anti body (4th generation) Negative (Non Reactive) Negative (Non Reactive) 04/05/2021 11:59 AM CDT [facility] Comment:HIV-1 p24 Antigen an d HIV-1/HIV-2 Antibody not detected Blood Venipuncture / Unknown 04/04/2021 4:24 PM CDT 04/04/2021 4:24 PM CDT us Verna Neves MD LAB_1 Final Resul t [facility] [id number] [place] [address] from Last 3 Months or Most Recently Relevant to Health Maintenance Insurance FULLY INSURED HP FULLY INSURED [facility] Care Teams Crayon Painter Relationship Specialty Start Date End Date Verna Neves MD [address] [place] [address] PCP - General Family Practice 12/29/19
--- OUTSIDE RECORDS SUMMARY | 2025-01-09 22:01 | XMS_ITS | Encounter Summary ---
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
== END 2025-01-09 23:28 | disposition home or self-care (01) ==
PROVIDERS: Emergency Provider Family Medicine
DX: S06.0X0A Concussion without loss of consciousness, initial encounter (principal); W22.8XXA Striking against or struck by other objects, initial encounter; H53.8 Other visual disturbances; R51.9 Headache, unspecified; R11.2 Nausea with vomiting, unspecified
CPT/HCPCS: 70450; 99284

== ENCOUNTER 2025-06-03 08:42 | Emergency (ER) | payer OTHER, SELFPAY ==
--- OUTSIDE RECORDS SUMMARY | 2025-06-03 08:46 | XMS_ITS | Clinical Summary ---
Author Organization [facility] Address [address], [place] [address] Care Team Providers Care Social Worker Aide Name Role Phone Verna Neves MD Primary Care Provider [phone] Source Comments You are receiving this document as you are listed as the primary care provider,follow-up provider, or the patient has been referred to you for consultation.This is in compliance with the Medicare andPremier Healthcaid EHR Incentive Program,which states Providers who transition their patient to another setting of careor provider of care or refers their patient to another provider of care shouldprovide summary care record for each transition of care or referral. [facility] Allergies Active Allergy Reactions Criticality Noted Date Comments Latex Hives High 06/29/2018 Penicillins Anaphylaxis High 06/29/2018 Medications FERROUS SULFATE OR 356 mg. Active Ascorbic Acid (VITAMIN C) 250 MG tablet Take 1 Tablet (250 mg) by mouth daily. Active levonorgestrel-et hinyl estrad (VIENVA) 0.1-20 MG-MCG tabletIndications :Encounter for initial prescription of contraceptive pills Take 1 Tablet by mouth daily. Skip placebo week. 84 Tablet 4 07/19/19 25 Active triamcinolone acetonide (KENALOG) 0.1 % cream Apply topically two times daily as needed for Other. Use up to 2 weeks at a time 30 g 07/19/19 25 Active SUMAtriptan (IMITREX) 50 MG tabletIndications :Chronic migraine with aura without status migrainosus, not intractable Take 1 Tablet (50 mg) by mouth as needed for Migraine. May repeat one tablet after 2 hours if needed. Maximum 4 tabs/24 hours and 9 days/month 9 Tablet 3 12/22/19 25 Active triamcinolone acetonide (KENALOG) 0.1 % creamIndications: Bug bite, initial encounter Apply topically to bug bites up to three times a day as needed for 7 days. 30 g 01/01/20 25 Active Phentermine HCl (ADIPEX-P) 37.5 MG tabletIndications :Class 3 severe obesity due to excess calories without serious comorbidity with body mass index (BMI) of 40.0 to 44.9 in adult (HRC) TAKE 1 TABLET(37.5 MG) BY MOUTH DAILY BEFORE BREAKFAST 90 Tablet 01/19/20 25 Active meloxicam (MOBIC) 7.5 MG tabletIndications :Closed nondisplaced fracture of fifth metatarsal bone of right foot with routine healing, subsequent encounter Take 1-2 Tablets (7.5-15 mg) by mouth daily as needed for Pain. 30 Tablet 04/11/20 25 Active FLUoxetine (PROZAC) 40 MG capsuleIndication s:Depression with anxiety (HRC) Take 1 Capsule (40 mg) by mouth daily. 90 Capsule 3 04/11/20 25 Active propranolol (INDERAL) 20 MG tabletIndications :Chronic migraine with aura without status migrainosus, not intractable Take 1 Tablet (20 mg) by mouth two times a day. 180 Tablet 3 04/11/20 25 Active montelukast (SINGULAIR) 10 MG tabletIndications :Seasonal allergies TAKE 1 TABLET(10 MG) BY MOUTH EVERY EVENING 90 Tablet 05/19/20 25 Active montelukast (SINGULAIR) 10 MG tabletIndications :Seasonal allergies TAKE 1 TABLET(10 MG) BY MOUTH EVERY EVENING 90 Tablet 12/15/19 25 025 Discontinued Active Problems Problem Noted Date Diagnosed Date [...] Encounters Date Type Department Care Team Description 05/13/2025 Refill [facility] [address] [place] [address] Astrid Proctor MD Refill (montelukast (SINGULAIR) 10 MG tablet [Pharmacy Med Name: MONTELUKAST 10MG TABLETS]) 04/15/2025 E-Visit Dedicated Specialty Scheduling [address] [place] [address] Mychart, Generic Provider 04/11/2025 8:20 AM CDT Office Visit [address] [address] Kale Purvis MD Closed nondisplaced fracture of fifth metatarsal bone of right foot with routine healing, subsequent encounter (Primary Dx); Depression with anxiety (HRC); Chronic migraine with aura without status migrainosus, not intractable 04/01/2025 9:30 AM CDT Ancillary Procedure [facility] [address] [place] [address] Kathy Ballesteros MD Pain of right foot 04/01/2025 9:20 AM CDT Office Visit [facility] [address] [place] [address] Kathy Ballesteros MD Pain of right foot; Closed nondisplaced fracture of fifth metatarsal bone of right foot, initial encounter 03/17/[address] [address] Kale Purvis MD Refill (FLUoxetine (PROZAC) 40 MG capsule [Pharmacy Med Name: FLUOXETINE 40MG CAPSULES]) 03/17/[address] [address] Kale Purvis MD Refill (propranolol (INDERAL) 20 MG tablet [Pharmacy Med Name: PROPRANOLOL 20MG TABLETS]) from Last 3 Months Immunizations Immunization Administration Dates Next Due Influenza ccIIV3 6 months+ (Flucelvax) 5,07/19/2024 Moderna COVID-19 12+ (Spikevax) 07/19/2024 Moderna Monovalent 12+ 09/10/2020,08/14/2020 Td Adult, Not Absorbed 10/29/2011 Tdap 10/08/2021 Family History Medical History Relation Name Comments Depression Father Dad Diabetes, Type I Father Dad Hypertension Father Dad Obstructive Sleep Apnea Father Dad Coronary Artery Disease Mother Ma Depression Mother Ma Diabetes Mother Ma Diabetes, Type I Mother Ma Fibromyalgia Mother Ma Heart Disease Mother Ma Stroke Mother Ma Cancer Maternal Aunt Corky Depression Maternal Aunt Corky Cancer Maternal Grandmother Grammy Depression Maternal Grandmother Grammy Diabetes Maternal Grandmother Grammy Heart Disease Maternal Grandmother Grammy Stroke Maternal Grandmother Grammy Early Maternal Uncle Gigi Relation Name Status Comments Father Dad Alive Mother Ma Alive Maternal Aunt Corky Maternal Grandmother Grammy Maternal Uncle Gigi Alive Social History Tobacco Use Types Packs/Day Years [...] more drinks on one occasion? 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 Not on file Last Filed Vital Signs Vital Sign Reading Time Taken Comments Blood Pressure 124/75 04/11/2025 8:06 AM CDT Pulse 67 04/11/2025 8:06 AM CDT Temperature 36.2 C (97.2 F) 02/04/2024 4:36 PM CDT Respiratory Rate 18 04/01/2025 9:24 AM CDT Oxygen Saturation 100% 04/01/2025 9:24 AM CDT Inhaled Oxygen Concentration - - Weight 115.8 kg (255 lb 6.4 oz) 12/31/2024 8:55 AM CDT Height 168.9 cm (5' 6.5) 12/31/2024 8:55 AM CDT Body Mass Index 40.61 12/31/2024 8:55 AM CDT Plan of Treatment Health Maintenance Due Date Last Done Comments Hep C Screening (Preventive Services) 1985 HPV Vaccine (1 - 3-dose SCDM series) 10/23/2014 Adult Preventive Visit 02/07/2024 , 04/04/2021, 04/04/2021 (Completed) COVID-19 Vaccine (4 - 2024-2 6 season) 2025 07/19/2024, 09/10/2020, 08/14/2020 Cervical Cancer Screening 02/06/20272021, 02/06/2022, 04/24/2017 (Completed) Diabetes Screening- (based o n age and BMI) 07/19/2027 07/19/2024 DTaP/Tdap/Td Vaccine (2 - Tdap) 10/09/2031 10/08/2021, 10/29/2011 Zoster/Shingles Vaccine (1 o f 2) 10/23/2037 HIV Screening (Preventive Services) Completed 04/04/2021 Influenza Vaccine Completed 04/11/2025, 07/19/2024 HepA Vaccine Aged Out No longer eligi [...] Procedure Name Priority Date/Time Associated Diagnosis Comments XR FOOT RT 3+ VIEWS STAT 04/01/2025 9:35 AM CDT Pain of right foot HGB A1C Routine 07/19/2024 1:08 PM PAROLE BOARD MEMBER Screening for diabetes mellitus CYTOLOGY (PAP) Routine 02/06/2022 9:18 AM CDT Screening for malignant neoplasm of cervix HIV 1/2 AG/AB 4TH GEN Routine 04/04/2021 4:24 PM CDT Screening for HIV (human immunodeficiency virus) from Last 3 Months or Most Recently Relevant to Health Maintenance Results * XR Foot Rt 3+ Views (04/01/2025 9:35 AM CDT) Anatomical Region Laterality Modality Lower Extremity, Foot Digital Ra diography Narrative 04/01/2025 9:41 AM CDT EXAM: XR FOOT RT 3+ VIEWS INDICATION: right foot pain after injury weeks ago COMPARISON: None. FINDINGS: Three images right foot. There is an incomplete or partially healed nondisplaced fracture at the 5th metatarsal base. Possible healing fracture with periosteal reaction involving the distal end of the 5th digit proximal phalanx, correlate with history and for pain in this location. No other potential acute osseous abnormality or malalignment. Signed by: Dimitri Sierra 04/01/2025 9:41 AM Procedure Note Dimitri Sierra MD - 04/01/2025 EXAM: XR FOOT RT 3+ VIEWS INDICATION: right foot pain after injury weeks ago COMPARISON: None. FINDINGS: Three images right foot. There is an incomplete or partially healednondisplaced fracture at the 5th metatarsal base. Possible healingfracture with periosteal reaction involving the distal end of the 5thdigit proximal phalanx, correlate with history and for pain in thislocation. No other potential acute osseous abnormality or malalignment. Signed by: Dimitri Sierra 04/01/2025 9:41 AM us Kathy Ballesteros MD RAD GD Final Result * Hgb A1C (Expected: Now) - Collect in Lab (07/19/2024 1:08 PM PAROLE BOARD MEMBER) Hemoglobin A1C 5.2 <=5.6 % 07/19/2024 8:08 PM [facility] Estimated Average Glucose (Calc) 103 < 117 mg/dL 07/19/2024 8:08 PM PAROLE BOARD MEMBER [facility] Comment:Estimated average gl ucose (eAG) converts A1c into glucose units (mg/dL) and estimates average glucose over the past approximately 3 months. The eAG reference interval (<117 mg/dL) corresponds to an A1c of <5.7%. Blood Venipuncture / Unknown 07/19/2024 1:08 PM PAROLE BOARD MEMBER 07/19/2024 1:08 PM PAROLE BOARD MEMBER us Chantal Head PA-C LAB_1 Final Resul t [facility] [address] [place] [address], [facility] * PAP Test (02/06/2022 9:18 AM CDT) Case Report Pap Case: [id number] Authorizing Provider: Verna Neves MD Collected: 02/06/2022 0918 Ordering Location: [facility] Received: 02/06/2022 1226 Practice First Screen: Gabriella Caraballo CT (ASCP) Rescreen: Gabriela Coughlin SCT (ASCP) Specimen: Pap Test, Routine, Cervix/Endocervix 02/21/2022 1:31 PM [facility] Pap Specimen Adequacy Satisfactory for evaluation, endocervical/kuo sformation zone component absent. 02/21/2022 1:31 PM [facility] Pap Interpretation (NILM) Negative for intraepithelial lesion or malignancy. 02/21/2022 1:31 PM [facility] at 1331 CDT Pap Disclaimer The Pap test is a screening test designed to aid in the detection of cervical cancer and its precursor lesions. It is not a diagnostic procedure and should not be used as the sole means of detecting cervical cancer. Both false-positive and false-negative results may occur. 02/21/2022 1:31 PM [facility] Gross Description The specimen is received in SurePath fixative and properly labeled. 1 Pap-stained SurePath slide is prepared. 02/21/2022 1:31 PM [facility] Embedded Images 1:31 PM [facility] Other Specimen Type ENTIRE ENDOCERVIX / Unknown 02/06/2022 9:18 AM CDT 02/06/2022 12:26 PM CDT Comment:LMP: No LMP recorded . (Menstrual status: Continuous hormonal contraception). Verna Neves MD LAB PATHOLOGY Final Resul t Performing Organization Address City/[facility]/[place] [address], [facility] [phone] * HIV 1/2 Ag/Ab 4th Generation (04/04/2021 4:24 PM CDT) HIV 1/2 Antigen/Anti body (4th generation) Negative (Non Reactive) Negative (Non Reactive) 04/05/2021 11:59 AM CDT [facility] Comment:HIV-1 p24 Antigen an d HIV-1/HIV-2 Antibody not detected Blood Venipuncture / Unknown 04/04/2021 4:24 PM CDT 04/04/2021 4:24 PM CDT Verna Neves MD LAB_1 Final Resul t Performing Organization Address City/[facility] Co de Phone Number [facility] [address] [address], [facility] [phone] from Last 3 Months or Most Recently Relevant to Health Maintenance Insurance FULLY INSURED [employer] FULLY INSURED [facility] Care Teams Social Worker Aide Relationship Specialty Start Date End Date Verna Neves MD [address] [place], [place] [id number] PCP - General Family Practice 12/29/19
--- OUTSIDE RECORDS SUMMARY | 2025-06-03 08:46 | XMS_ITS | Encounter Summary ---
Author Organization [facility] Address [address], [place] [address] Care Team Providers Care Dental Scheduling Coordinator Name Role Phone Verna Neves MD Primary Care Provider [phone] Reason for Visit * Reason Comments Refill montelukast (SINGULA IR) 10 MG tablet [Pharmacy Med Name: MONTELUKAST 10MG TABLETS] Encounter Details Date Type Department Care Team (Late st Contact Info) Description 05/13/2025 Refill [facility] [address] [place], [place] [id number] Richard Live MD [address] [place] [address] Refill (montelukast (SINGULAIR) 10 [...] on file Legal Sex Female 11:25 AM CIRCUS LABORER Gender Identity Not on file Sexual Orientation Not on file 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 Called patient, was: unable to reach patient. 2nd call attempted. Unsuccessful in reaching patient. Frontline Action: Route to clinician identified in nursing documentation below. Clinician Action: Unsuccessful in reaching patient to schedule, requests refill. Please determine whether refill is appropriate. Recommend using ???Refuse All?? quick action to address request. US LABORER * Christa Rivers - 05/16/2025 10:35 AM CST Medication Refill - Due for Visit Medication still pending, patient is due to be seen in the next 30 days. Called patient, was: unable to reach patient. 1st call attempted. Left message to call back. Scheduling Action: Patient needs to schedule an appointment in the next 30 days. If able to schedule, please document date of appointment and route to clinician/pool identified in nursing documentation below. US LABORER * Samantha Zapien RN - 05/16/2025 8:10 AM CST Further Assistance Needed on Refill from Chairman President And Chief Executive Officer Patient is due for Qualifying Visit Medication is still pending. Patient is due for an Office/Video Visit in the next 30 days. Call Patient and document using .ESTEFANÍADURyann. After attempting to schedule patient: Please route to: Verna Neves MD Requested Prescriptions Pending Prescriptions Disp Refills montelukast (SINGULAIR) 10 MG tablet [Pharmacy Med Name: MONTELUKAST 10MG TABLETS] 90 Tablet 0 Sig: TAKE 1 TABLET(10 MG) BY MOUTH EVERY EVENING US LABORER * Vale Tate Xrwcomm - 05/13/2025 10:27 AM CDT montelukast (SINGULAIR) 10 MG tablet [Pharmacy Med Name: MONTELUKAST 10MG TABLETS] Medication started: 12/31/2019 Last ordered by RICHARD LIVE: 12/14/2024 (150 days ago) QTY: 90, Refills: 0, Sig: take 1 tablet(10 mg) by mouth every evening (unchanged) -> An office visit is overdue (performed over 15 months ago, required every 12 months). Last qualifying visit: 02/04/2024 (with RICHARD LIVE) (A more recent visit (in Family Practice with SHARDA PEOPLES) was found) Next scheduled visit: [facility] Embedded Refills, Reference: [id number], 05/13/2025 10:27:56 AM KELLIETEliazar: SANYA Refill Centralized Services - Primary Care ([id number]) US LABORER documented in this encounter Plan of Treatment Not on file documented as of this encounter Visit Diagnoses Diagnosis Seasonal allergies Allergic rhinitis, cause unspecified documented in this encounter Care Teams Dental Scheduling Coordinator Relationship Specialty Start Date End Date Verna Neves MD [address] [place] [address] PCP - General Family Practice 12/29/19 documented as of this encounter
--- OUTSIDE RECORDS SUMMARY | 2025-06-03 08:46 | XMS_ITS | Encounter Summary ---
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
--- OUTSIDE RECORDS SUMMARY | 2025-06-03 08:46 | XMS_ITS | Clinical Summary ---
Author Organization [facility] Address [address] [place] [address] Care Team Providers Care Security And Privacy Consultant Name Role Phone Chantal Head PA-C Primary Care Provider [phone] Allergies Active Allergy Reactions Criticality Noted Date [...] of 3 - 19+ 3-dose series) 10/23/2006 PHQ-2 (once per calendar year) 2024 PAP 02/06/2025 02/06/2022 COVID-19 VACCINE (3 - 2024-2 6 season) 2025 09/10/2020, 08/14/2020 INFLUENZA VACCINE (#1) 2025 DTAP/TDAP/TD VACCINE (3 - Td or Tdap) 10/09/2031 10/08/2021, 10/29/2011 ZOSTER VACCINE (1 of 2) 10/23/2037 HIV SCREENING Completed 04/04/2021 HPV VACCINE (No Doses Required) Completed MENINGITIS VACCINE Aged Out No longer eligible based on patient's age to complete this topic PNEUMOCOCCAL VACCINE: PEDIATRICS (0 to 5 YEARS) AND AT-RISK PATIENTS (6 to 49 YEARS) Aged Out No longer eligible b ased on patient's age to complete this topic Insurance [id number] [place] Care Teams Security And Privacy Consultant Relationship Specialty Start Date End Date Chantal Head, PAKathiaC [address] [place] [address] PCP - General 01/26/24
[2025-06-03 08:48] VITALS: BP 127/64; PULSE 64; RESP 16; TEMP 35.8; O2SAT 98; BMI 42.0
--- NOTE | 2025-06-03 09:12 | CRLHL7_ITS ---
For Patients: As a result of the Century Cures Act, medical imaging exams and procedure reports are released immediately into your electronic medical record. You may view this report before your referring provider. If you have questions, please contact your health care provider. INDICATION: CHEST PAIN TECHNIQUE: Chest 1 view COMPARISON: None FINDINGS: Cardiovascular and mediastinum: Heart size and vasculature are normal in caliber and appearance. Lungs and pleural spaces: Lungs are clear. No sign of infiltrate or mass. No sign of pleural effusion. No pneumothorax. Bones and soft tissues: No significant findings. IMPRESSION: No acute findings. Dictated by Dov Wilson MD @ 06/03/2025 9:27:45 AM (Electronically Signed)
--- NOTE | 2025-06-03 09:13 | ED.CHESTPAIN ---
HPI - Chest Pain General Chief Complaint: Chest Pain Stated Complaint: chest pain Time Seen by Provider: 06/03/25 09:00 History of Present Illness HPI narrative: Patient is a 39-year-old woman without a history heart disease who developed the abrupt onset of substernal chest pain this morning while making breakfast. She states she has no radiation of the pain the pain is 4 on a 10 and burning. She has had no fevers no chills no night sweats no cough no shortness of breath no nausea no vomiting. Patient has otherwise been feeling fine. Symptoms persisted she came to the emergency room more EKG shows normal sinus rhythm without acute ST or T-wave changes. Patient is still having discomfort at this time. Related Data Home Medications ?Medication ?Instructions ?Recorded ?Confirmed fluoxetine 40 mg capsule 40 mg PO DAILY 06/03/25 06/03/25 levonorgestrel-ethinyl estradiol 1 tab PO DAILY 06/03/25 06/03/25 0.1 mg-20 mcg tablet (Vienva) montelukast 10 mg tablet 10 mg PO DAILY 06/03/25 06/03/25 propranolol 20 mg tablet 20 mg PO BID 06/03/25 06/03/25 Allergies Allergy/AdvReac Type Severity Reaction Status Date / Time Penicillins Allergy Intermediate Verified 06/03/25 08:47 Latex, Natural Rubber AdvReac Itching Verified 06/03/25 08:47 Review of Systems Status of ROS Reports: 10 or more systems reviewed and unremarkable except as noted in History and below [facility] Social History Smoking Status: Never smoker How often do you have a drink containing alcohol: never AUDIT-C Alcohol total score: 0 Non-prescribed substance use: denies use Exam Narrative Exam Narrative: EXAM GENERAL: Patient appears comfortable and well. EYES: No scleral icterus. LYMPH: No supraclavicular or cervical lymphadenopathy. SKIN: Visible skin seen during exam normal or with benign process only. EXT: No dependent lower extremity pedal edema. HEART: Regular rate and rhythm with no murmurs, rubs, or gallops. LUNGS: Clear to auscultation bilaterally with no crackles or wheezes. ABD: Soft, non tender, non distended. PSYCH: Good eye contact, speech is not pressured. Const Vital Signs, click to edit/add: Vital Signs - 24 hr 06/03/25 08:48 06/03/25 09:30 06/03/25 09:44 Temperature 96.4 F L Pulse Rate [Pulse Oximeter] 64 Respiratory Rate 16 18 Blood Pressure 121/84 Blood Pressure [Right Upper Arm] 127/64 Pulse Oximetry 98 Oxygen Delivery Method Room Air Course Course ED Course: Patient is a 39-year-old woman who presents with chest pain. EKG is reassuring. Set up troponin D-dimer CBC comprehensive metabolic panel chest x-ray. We will give 15 mL and Maalox at this time. Vital Signs Vital signs: Initial Vital Signs Temperature 96.4 F L 06/03/25 08:48 Temperature Source Temporal Artery Scan 06/03/25 08:48 Pulse Rate 64 06/03/25 08:48 Pulse Rhythm Regular 06/03/25 08:48 Respiratory Rate 16 06/03/25 08:48 Blood Pressure 127/64 06/03/25 08:48 Blood Pressure Mean 85 06/03/25 08:48 Blood Pressure Position Sitting 06/03/25 08:48 Pulse Oximetry 98 06/03/25 08:48 Oxygen Delivery Method Room Air 06/03/25 08:48 Vital Signs Temperature 96.4 F L 06/03/25 08:48 Pulse Rate 64 06/03/25 08:48 Respiratory Rate 16 06/03/25 08:48 Blood Pressure 127/64 06/03/25 08:48 Pulse Oximetry 98 06/03/25 08:48 Oxygen Delivery Method Room Air 06/03/25 08:48 Temperature 96.4 F L 06/03/25 08:48 Pulse Rate 64 06/03/25 08:48 Respiratory Rate 18 06/03/25 09:30 Blood Pressure 121/84 06/03/25 09:44 Pulse Oximetry 98 06/03/25 08:48 Oxygen Delivery Method Room Air 06/03/25 08:48 Medications Administered Medications: Discontinued Medications Generic Name Dose Route Start Last Admin Trade Name Freq PRN Reason Stop Dose Admin Lidocaine/Aluminum/Magnesium/Simeth 15 ml 06/03/25 09:12 06/03/25 09:26 Mag Hydrox/Aluminum Hyd/Simeth 30 Ml Oral.Susp PO 06/03/25 09:13 15 ml ONCE ONE Administration MDM - Chest Pain MDM Narrative Medical decision making narrative: Patient presents with chest pain that occurred suddenly this morning. She is appears very stable. EKG done immediately upon arrival patient was still symptomatic shows no acute abnormalities. Troponin is negative D-dimer borderline but still given her history of no shortness of breath or cough I do not believe that pulmonary embolism is a concern enough to proceed with CT of the chest. Rest her labs and chest x-ray look fine. I did give her Maalox with improvement of her symptoms. I did recommend Prilosec OTC for the next 14 days and follow-up with primary care return if symptoms worsen or return. Lab Data Labs: Lab Results 06/03/25 Range/Units 09:31 WBC 6.89 (4.50-11.00) K/uL RBC 4.34 (4.00-5.20) m/uL Hgb 12.9 (12.0-16.0) gm/dL Hct 40.6 (33.0-51.0) % MCV 94 (80-100) fL MCH 30 (26-34) pg MCHC 32 (32-36) gm/dL RDW Coeff of Yohana 12.2 (11.5-15.5) % Plt Count 262 (140-440) K/uL Neut % (Auto) 67.9 (42.0-72.0) % Lymph % (Auto) 23.9 (20-44) % [place] % (Auto) 7.4 (0.0-11.0) % Eos % (Auto) 0.4 (0.0-7.0) % Baso % (Auto) 0.1 (0.0-3.0) % Neut # (Auto) 4.67 (1.7-7.0) K/uL Lymph # (Auto) 1.65 (0.90-2.90) K/uL [place] # (Auto) 0.50 (0.00-0.90) K/UL Eos # (Auto) 0.03 (0.00-0.50) K/uL Baso # (Auto) 0.01 (0.00-0.30) K/uL Abs Immat Gran (auto) 0.02 (0.00-0.30) K/uL Imm/Tot Granulo (auto) 0.3 % D-Dimer Quant (PE/DVT) 0.68 H (0.00-0.50) ug/ml Sodium 137 (135-149) mmol/L Potassium 4.1 (3.6-5.1) mmol/L Chloride 104 (96-114) mmol/L Carbon Dioxide 21 (20-32) mmol/L Anion Gap 12 (7-15) mEq/L BUN 19 (5-24) mg/dL Creatinine 0.8 (0.5-1.5) mg/dL Estimated Creat Clear 86.64 Estimated GFR 97 ml/min Glucose 98 (60-115) mg/dL Calcium 8.7 (8.4-10.6) mg/dL Total Bilirubin 0.4 (0.1-1.5) mg/dL AST 22 (12-35) U/L ALT 17 (4-35) U/L Alkaline Phosphatase 86 (40-150) U/L Troponin I < 0.01 (0.01-0.04) ng/mL Total Protein 6.9 (6.0-8.3) g/dL Albumin 3.9 (3.3-5.0) g/dL Discharge Plan Discharge Clinical Impression: Atypical chest pain Patient Disposition: Home, Self-Care Condition: Stable Instructions: Chest Pain (ED) Additional Instructions: Prilosec [id number] 20 mg on an empty stomach daily for 14 days. Return if symptoms worsen Follow-up with your doctor in the next 2 weeks. Activity Level: No Restrictions Discharge Diet: Regular Prescriptions: No Action fluoxetine 40 mg capsule 40 mg PO DAILY levonorgestrel-ethinyl estrad [Vienva] 0.1-20 mg-mcg tablet 1 tab PO DAILY montelukast 10 mg tablet 10 mg PO DAILY propranolol 20 mg tablet 20 mg PO BID Follow Up/Referrals: Provider,Not a Local [Primary Care Provider, Family Practice] Stand Alone Forms: [facility] Info Instructions
[2025-06-03] MEDS: MAG HYDROX/ALUMINUM HYD/SIMETH 30 ML ORAL.SUSP 15 ML PO (09:26)
[2025-06-03 09:30] VITALS: RESP 18
[2025-06-03 09:38] LABS: Hematocrit* 40.6 % (33.0-51.0); Hemoglobin* 12.9 gm/dL (12.0-16.0); Immature Granulocytes Abs Auto 0.02 K/uL (0.00-0.30); Immature Granulocytes Pct Auto 0.3 %; Lymphocytes Absolute Auto 1.65 K/uL (0.90-2.90); Mean Corpuscular HGB Conc 32 gm/dL (32-36); Mean Corpuscular Hemoglobin 30 pg (26-34); Mean Corpuscular Volume 94 fL (80-100); RDW Coefficient of Variation % 12.2 % (11.5-15.5); Red Blood Count* 4.34 m/uL (4.00-5.20); White Blood Count* 6.89 K/uL (4.50-11.00)
[2025-06-03 09:44] VITALS: BP 121/84
[2025-06-03 09:44] LABS: Slide Review Reflex No
[2025-06-03 09:55] LABS: Albumin* 3.9 g/dL (3.3-5.0); Chloride* 104 mmol/L (96-114); Potassium* 4.1 mmol/L (3.6-5.1); Sodium* 137 mmol/L (135-149)
[2025-06-03 09:58] LABS: Alanine Aminotransferase* 17 U/L (4-35); Alkaline Phosphatase* 86 U/L (40-150); Anion Gap 12 mEq/L (7-15); Aspartate Amino Transferase* 22 U/L (12-35); Bilirubin Total* 0.4 mg/dL (0.1-1.5); Blood Urea Nitrogen* 19 mg/dL (5-24); Carbon Dioxide* 21 mmol/L (20-32); Creatinine* 0.8 mg/dL (0.5-1.5); Est. Creatinine Clearance* 86.64; Estimated Glomerular Filt Rate 97 ml/min; Total Protein* 6.9 g/dL (6.0-8.3)
[2025-06-03 09:59] LABS: Calcium* 8.7 mg/dL (8.4-10.6); Glucose* 98 mg/dL (60-115)
[2025-06-03 10:01] LABS: D Dimer Quantitative* 0.68 ug/ml (0.00-0.50)
== END 2025-06-03 10:26 | disposition home or self-care (01) ==
PROVIDERS: Emergency Provider Internal Medicine
DX: R07.89 Other chest pain (principal)
CPT/HCPCS: 36415; 71045; 80053; 84484; 85025; 85379; 93005; 99283; 99284; 99285; A9270